=== PATIENT | male | born 1940 | race Caucasian/White ===

== ENCOUNTER 2020-01-20 18:00 | Inpatient (IN) | payer OTHER, BC, SELFPAY ==
[~2020-01-20] VITALS: Ht 167.6 cm; Wt 68.0 kg
[2020-01-20 18:00] VITALS: BP_SYST 146
[2020-01-20] MEDS ORDERED: methylPREDNISolone SOD SUCC/PF 62.5 MG/ML VIAL IVP ONE (19:45)
[2020-01-20] MEDS ORDERED: MAGNESIUM SULFATE 50 ML IV ONE (19:45)
[2020-01-20 20:41] LABS: ANION GAP 13 (5-15); CALCIUM 8.9 mg/dL (8.4-11.0); CREATININE 2.01 mg/dL (0.55-1.30); GLUCOSE 124 mg/dL (70-99); POTASSIUM 4.2 mmol/L (3.5-5.1); SODIUM SERUM 153 mmol/L (136-145); UREA NITROGEN, BLOOD 56 mg/dL (8-21)
[2020-01-20 20:46] LABS: ALANINE AMINOTRANSFERASE 44 U/L (12-78); ALBUMIN 2.4 g/dL (3.4-4.8); ASPARTATE AMINOTRANSFERASE 56 U/L (10-37); TOTAL BILIRUBIN 0.7 mg/dL (0.0-1.0)
[2020-01-20 20:52] LABS: BASOPHILS % (AUTO) 0.2 % (0.0-2.0); EOSINOPHILS % (AUTO) 0.3 % (0.0-4.0); HEMATOCRIT 42.3 % (36-54); HEMOGLOBIN 13.7 g/dL (14.0-18.0); LYMPHOCYTES # (AUTO) 0.5 K/uL (1.0-5.5); LYMPHOCYTES % (AUTO) 5.6 % (20.5-51.5); MEAN CORPUSCULAR HEMOGLOBIN 29 pg (27-31); MEAN CORPUSCULAR HGB CONC 32 % (32-36); MEAN CORPUSCULAR VOLUME 90 fL (79.0-98.0); MONOCYTES # (AUTO) 0.2 K/uL (0.0-1.0); MONOCYTES % (AUTO) 2.5 % (1.7-9.3); NEUTROPHILS # (AUTO) 8.8 K/uL (1.8-7.7); NEUTROPHILS % (AUTO) 91.4 % (40.0-70.0); PLATELET COUNT (AUTO) 52 K/uL (130-430); RED BLOOD CELL COUNT(AUTO) 4.71 MIL/uL (4.2-6.2); RED CELL DISTRIBUTION WIDTH 16.1 % (9.0-15.0); WHITE BLOOD COUNT (AUTO) 9.7 K/uL (4.8-10.8)
[2020-01-20 21:14] LABS: CHLORIDE 121 mmol/L (98-107)
[2020-01-20] MEDS ORDERED: NACL 0.9% 1,000 ML IV ONE (21:45)
[2020-01-20] MEDS ORDERED: AMLO5TAB4 PO (22:26)
[2020-01-20] MEDS ORDERED: VITD2000 PO (22:32)
[2020-01-20] MEDS ORDERED: LIP40 PO (22:32)
[2020-01-20] MEDS ORDERED: OMEP20CA15 PO (22:37)
[2020-01-20] MEDS ORDERED: TRAZ-250 PO (22:37)
[2020-01-20] MEDS ORDERED: ZINC50TA69 PO (22:37)
[2020-01-20] MEDS ORDERED: TRAM50TA2 PO (22:37)
[2020-01-20] MEDS ORDERED: ASCO500C18 PO (22:37)
[2020-01-20] MEDS ORDERED: MEGE400O5 PO (22:37)
[2020-01-20] MEDS ORDERED: HYDR-3917 PO (22:37)
[2020-01-20] MEDS ORDERED: CLOP75TA32 PO (22:37)
[2020-01-20] MEDS ORDERED: LISI10TA PO (22:37)
[2020-01-20] MEDS ORDERED: FLUT1BLS5 IH (22:37)
[2020-01-20] MEDS ORDERED: GABA-331 PO (22:37)
[2020-01-20] MEDS: D5/0.45 NS 1,000 ML IV SCH (23:27)
[2020-01-20] MEDS ORDERED: HYDROcodone/ACETAMIN 5-325 MG TAB (NORCO/ VICODIN) PO PRN (23:30)
[2020-01-20] MEDS ORDERED: NALOXONE HCL 0.4 MG/ML AMP (NARCAN) IVP PRN (23:30)
[2020-01-20] MEDS ORDERED: ALBUTEROL MDI INHALATION 8 GM INH INH PRN (23:30)
[2020-01-20] MEDS ORDERED: methylPREDNISolone SOD SUCC/PF 62.5 MG/ML VIAL ONE (23:32)
[2020-01-21] MEDS ORDERED: cefTRIAXone 1 GM IVPB PREMIX 50 ML IV SCH (06:00)
[2020-01-21 07:57] LABS: BASOPHILS % (AUTO) 0.1 % (0.0-2.0); HEMATOCRIT 42.2 % (36-54); HEMOGLOBIN 13.5 g/dL (14.0-18.0); LYMPHOCYTES # (AUTO) 0.5 K/uL (1.0-5.5); LYMPHOCYTES % (AUTO) 5.3 % (20.5-51.5); MEAN CORPUSCULAR HEMOGLOBIN 29 pg (27-31); MEAN CORPUSCULAR HGB CONC 32 % (32-36); MEAN CORPUSCULAR VOLUME 90 fL (79.0-98.0); MONOCYTES # (AUTO) 0.3 K/uL (0.0-1.0); MONOCYTES % (AUTO) 3.2 % (1.7-9.3); NEUTROPHILS # (AUTO) 8.2 K/uL (1.8-7.7); NEUTROPHILS % (AUTO) 91.4 % (40.0-70.0); PLATELET COUNT (AUTO) 146 K/uL (130-430); RED BLOOD CELL COUNT(AUTO) 4.68 MIL/uL (4.2-6.2); RED CELL DISTRIBUTION WIDTH 16.3 % (9.0-15.0)
[2020-01-21] MEDS: D5/0.45 NS 1,000 ML IV SCH ×2 (08:15→18:15)
[2020-01-21 08:36] LABS: ANION GAP 13 (5-15); CALCIUM 8.7 mg/dL (8.4-11.0); CREATININE 2.01 mg/dL (0.55-1.30); GLUCOSE 210 mg/dL (70-99); POTASSIUM 4.1 mmol/L (3.5-5.1); SODIUM SERUM 154 mmol/L (136-145); UREA NITROGEN, BLOOD 61 mg/dL (8-21)
[2020-01-21 08:52] LABS: CHLORIDE 122 mmol/L (98-107)
[2020-01-21] MEDS: GABAPENTIN 300 MG CAPSULE PO SCH ×3 (08:59→15:37)
[2020-01-21] MEDS ORDERED: OMEPRAZOLE Non-Formulary 20 MG CAPSULE.DR PO SCH (09:00)
[2020-01-21] MEDS ORDERED: NON-FORMULARY MEDICATION (Fluticasone/Umeclidin/Vilanter (Trelegy Ellipta 100-62.5-25) 1 E IH SCH (09:00)
[2020-01-21] MEDS ORDERED: NON-FORMULARY MEDICATION (Ascorbic Acid (Vitamin C) 1 CAP) PO SCH (09:00)
[2020-01-21] MEDS ORDERED: CHOLECALCIFEROL (VITAMIN D3) 5,000 UNIT TABLET PO SCH (09:00)
[2020-01-21] MEDS ORDERED: PANTOPRAZOLE SODIUM 40 MG TAB PO SCH (09:00)
[2020-01-21] MEDS ORDERED: DEXAMETHASONE SOD PHOSPHATE 10 MG/ML VIAL IVP SCH (09:00)
[2020-01-21] MEDS ORDERED: LISINOPRIL 10 MG TABLET (PRINIVIL) PO SCH (09:00)
[2020-01-21] MEDS ORDERED: amLODIPine BESYLATE 5 MG TABLET PO SCH (09:00)
[2020-01-21] MEDS ORDERED: DOXYCYCLINE HYCLATE 100 MG CAPSULE PO SCH (09:00)
[2020-01-21] MEDS ORDERED: MEGESTROL ACETATE 400 MG/10 ML UDC PO SCH (09:00)
[2020-01-21] MEDS ORDERED: ATORVASTATIN 20 MG TABLET PO SCH (09:00)
[2020-01-21] MEDS ORDERED: CLOPIDOGREL BISULFATE 75 MG TABLET PO SCH (09:00)
[2020-01-21] MEDS ORDERED: ASCORBIC ACID 500 MG TABLET PO SCH (09:00)
[2020-01-21 09:16] VITALS: BP_SYST 126
[2020-01-21 11:44] LABS: C-REACTIVE PROTEIN QUANT 28.5 mg/dL (0-0.5)
[2020-01-21 20:53] VITALS: BP_SYST 130
[2020-01-21] MEDS ORDERED: ENOXAPARIN SODIUM 30 MG/0.3 ML SYRINGE SUBCUT SCH (21:00)
[2020-01-21] MEDS ORDERED: traZODone HCL 50 MG TABLET (DESYREL) PO SCH (21:00)
== END 2020-01-21 20:53 | disposition hospice, home (50) | DRG 177 ==
LOC: SED 18:00 → STU 22:15 → EDBD 22:15 → STU 01-21 20:53
PROVIDERS: ADMIT Family Medicine; ATTEND Family Medicine
DX: U07.1 COVID-19 (principal); J12.89 Other viral pneumonia; G93.41 Metabolic encephalopathy; J96.01 Acute respiratory failure with hypoxia; E43 Unspecified severe protein-calorie malnutrition; J44.0 Chronic obstructive pulmonary disease with (acute) lower respiratory infection; J44.1 Chronic obstructive pulmonary disease with (acute) exacerbation; N17.9 Acute kidney failure, unspecified; E87.0 Hyperosmolality and hypernatremia; Z51.5 Encounter for palliative care; E86.0 Dehydration; F17.200 Nicotine dependence, unspecified, uncomplicated; I10 Essential (primary) hypertension; M19.90 Unspecified osteoarthritis, unspecified site; Z68.24 Body mass index [BMI] 24.0-24.9, adult
CPT/HCPCS: 36415; 36600; 71045; 80048; 80053; 82803-TC; 83735-TC; 85025; 85379; 86140; 87040-TC; 87081; 96365; 96375; 99285; G0378; J0696; J1100; J1650; J2930; J3475; U0003